=== PATIENT | male | born 1955 | race Caucasian/White ===

== ENCOUNTER → 2021-06-01 12:01 | Outpatient (REF) | payer MEDICARE, SELFPAY | LOC: ANHLAB 12:01 | PROVIDERS: PCP Nurse Practitioner Family; Visit Provider Nurse Practitioner | DX: L98.9 Disorder of the skin and subcutaneous tissue, unspecified (principal) | CPT/HCPCS: 88305 ==

== ENCOUNTER → 2021-06-26 13:36 | Outpatient (REF) | payer MEDICARE, SELFPAY | LOC: ANHLAB 13:36 | PROVIDERS: PCP Nurse Practitioner Family; Visit Provider Nurse Practitioner | DX: R22.9 Localized swelling, mass and lump, unspecified (principal) | CPT/HCPCS: 88304 ==